=== PATIENT | male | born 1955 | race Caucasian/White ===

== ENCOUNTER 2017-02-26 06:36 | Emergency (ER) | payer OTHER ==
[~2017-02-26] VITALS: Ht 185.4 cm; Wt 126.1 kg
[2017-02-26 06:57] VITALS: BP 138/85
[2017-02-26] MEDS ORDERED: PREDNISONE10 M2 PO (07:17)
[2017-02-26] MEDS ORDERED: CYCLOBENZAPRINE10 M1 PO (07:17)
--- NOTE | 2017-02-26 07:17 | ED NECK/BACK PAIN COMPLAINT ---
History of Present Illness General Chief Complaint: Low Back Pain/Injury Stated Complaint: PER PT "SEVERE LOW BACK PAIN" Source: patient, family, old records Exam Limitations: no limitations Vital Signs & Intake/Output Vital Signs & Intake/Output Vital Signs Date Time Temp Pulse Resp B/P B/P Pulse O2 O2 Flow FiO2 Mean Ox Delivery Rate 02/26 0657 97.7 70 16 138/85 98 Room Air Room Air Allergies Uncoded Allergies: Med Allergies DENIES Reconcile Medications Cyclobenzaprine HCl 10 MG TABLET 1 TAB PO Q8P PAIN OR SPASM Prednisone 10 MG TABLET 1 TAB PO DAILY BACK PAIN TAKE 4 TABS FOR 3 DAYS THEN TAKE 3 TABS FOR 3 DAYS THEN TAKE 2 TABS FOR 3 DAYS THEN TAKE 1 TAB FOR 3 DAYS Triage Note: 61YO MALE TO TRIAGE W/CO R LOW BACK PAIN THIS AM. STATES HX OF SAME BUT NOT THIS SEVERE. DENIES ANY TRAUMA,INJURY OR HEAVY LIFTING. Triage Nurses Notes Reviewed? yes HPI: Patient states that he was playing golf today when he had a sudden onset of low back pain after swimming. Patient states that he suffers from low back pain but usually with Advil it goes away. Patient states when he gets the pain it is usually on his left side and shoots on his left leg. Patient has been through physical therapy in the past. Patient states that now the pain is on both sides and shoots down both legs with movement. There is no weakness or numbness. There is no incontinence of bowel or bladder. The pain is 8 out of 10 and increases with movement. Patient has probably his primary care physician who recommended an MRI. Patient comes into the emergency room for evaluation. The pain is sharp and stabbing in nature. The pain is constant. Past History Travel History Traveled to [place] past 21 day No Medical History Any Pertinent Medical History? see below for history Endocrine: diabetes Surgical History Surgical History: non-contributory Psychosocial History What is your primary language Bulgarian Tobacco Use: Quit >30 days ago ETOH Use: occasional use Illicit Drug Use: denies illicit drug use, HX OF ADDICTION TO PERCOCETS Family History Hx Contributory? No Review of Systems Review of Systems Constitutional: Reports: no symptoms. Eyes: Reports: no symptoms. Ears, Nose, Throat, Mouth: Reports: no symptoms. Respiratory: Reports: no symptoms. Cardiovascular: Reports: no symptoms. Gastrointestinal/Abdominal: Reports: no symptoms. Musculoskeletal: Reports: see HPI, back pain. Skin: Reports: no symptoms. Neurological/Psychological: Reports: no symptoms. All Other Systems: Reviewed and Negative Physical Exam Physical Exam General Appearance: well developed/nourished, alert, awake, moderate distress Head: atraumatic Eyes: Bilateral: PERRL, EOMI. Ears, Nose, Throat, Mouth: hearing grossly normal Neck: normal inspection, supple, full range of motion, no midline tenderness Respiratory: normal breath sounds Cardiovascular: regular rate/rhythm, normal peripheral pulses Gastrointestinal: normal bowel sounds, soft, non-tender, no organomegaly Back: normal inspection, muscle spasm, no vertebral tenderness Extremities: normal range of motion Straight Leg Raising: Right: Negative. Left: Negative. DTR: Deficit L4 Left: No Deficit L4 Right: No Deficit S1 Left: No Deficit S1 Right: No Patellar: 3: L4 Right, L4 Left. Achilles: 2: S1 Right, S1 Left. Neurologic/Psych: no motor/sensory deficits, awake, alert, oriented x 3, normal mood/affect Skin: intact, normal color, warm/dry Progress Differential Diagnosis: herniated disc, myofascial strain, sciatica, T/L spine injury Plan of Care: Current Medications Sig/Yarely Start time Last Medication Dose Stop Time Status Admin Prednisone 60 MG ONCE ONE 02/26 715 UNVr 02/27 716 Departure Departure Disposition: HOME OR SELF CARE Condition: Stable Clinical Impression Primary Impression: Back pain Qualifiers: Back pain location: low back pain Chronicity: acute Back pain laterality: bilateral Sciatica presence: with sciatica Sciatica laterality: sciatica of left side Qualified Code: M54.42 - Lumbago with sciatica, left side Referrals: BOBBY LIZARRAGA MD (PCP/Family) Additional Instructions: FOLLOW UP WITH YOUR DOCTOR TO SCHEDULE THE MRI RETURN IF SYMPTOMS WORSEN OR FOR ANY CONCERNS Departure Forms: Customer Survey General Discharge Information Prescriptions: Current Visit Scripts Prednisone 1 TAB PO DAILY #30 TAB TAKE 4 TABS FOR 3 DAYS THEN TAKE 3 TABS FOR 3 DAYS THEN TAKE 2 TABS FOR 3 DAYS THEN TAKE 1 TAB FOR 3 DAYS Cyclobenzaprine HCl 1 TAB PO Q8P #20 TAB
== END 2017-02-26 07:27 ==
LOC: ERH 06:36
DX: M54.5 Low back pain (principal)